=== PATIENT | female | born 1990 | race Caucasian/White ===

== ENCOUNTER 2016-08-23 09:37 | Emergency (ER) | payer OTHER ==
[2016-08-23] MEDS ORDERED: NORMAL SALINE 1000 ML 1,000 ML IV ONE (09:54)
[2016-08-23] MEDS ORDERED: METOCLOPRAMIDE HCL INJ/PF 10 MG/2 ML SDV IV ONE (09:55)
--- NOTE | 2016-08-23 09:57 | ER Document Report ---
ED Medical Screen (RME) - General Chief Complaint: Vomiting Stated Complaint: NAUSEA Time Seen by Provider: 08/23/16 09:54 Notes: Patient says she is experiencing morning sickness and been nauseated and vomiting for the past 6 days. She is approximately 7 weeks in her second . She started last Saturday with vomiting and after couple of days it eased off, but now it is coming back. She basically has had little oral intake during the 6 days. Also had some diarrhea. No fevers. No UTI symptoms. PMH: Appendectomy. TRAVEL OUTSIDE OF THE [place] IN LAST 30 DAYS: No - Related Data Allergies/Adverse Reactions: lamotrigine [From Lamictal] Allergy (Verified 08/23/16 09:39) Past Medical History Renal/ Medical History: Denies: Hx Peritoneal Dialysis Physical Exam - Vital signs Vitals: Temp Pulse Resp BP Pulse Ox 98.0 F 91 16 124/75 100 08/23/16 09:39 08/23/16 09:39 08/23/16 09:39 08/23/16 09:39 08/23/16 09:39 Course - Vital Signs Vital signs: Temp Pulse Resp BP Pulse Ox 98.0 F 91 16 124/75 100 08/23/16 09:39 08/23/16 09:39 08/23/16 09:39 08/23/16 09:39 08/23/16 09:39
[2016-08-23] MEDS ORDERED: DEXTROSE 5%-NORMAL SALINE 1,000 ML IV ONE (10:22)
[2016-08-23] MEDS ORDERED: DEXTROSE 5%-1/2 NORMAL SALINE 500 ML IV ONE (10:22)
--- NOTE | 2016-08-23 10:26 | ER Document Report ---
ED General - General Chief Complaint: Vomiting Stated Complaint: NAUSEA Time Seen by Provider: 08/23/16 09:54 Mode of Arrival: Ambulatory Information source: Patient Notes: This is a 26-year-old female 2 para 1, last normal menstrual period on July 03, reports being 7 weeks , presents to the emergency room with nausea, vomiting, diarrhea and inability to drink fluids or eat because of the nausea. Patient denies any abdominal pain. Patient denies any vaginal bleeding. Past medical history: Depression Symptoms: None Allergies: Lamictal Past surgical history: Appendectomy, LEEP TRAVEL OUTSIDE OF THE [place] IN LAST 30 DAYS: No - HPI Onset: Last week Onset/Duration: Gradual Quality of pain: No pain Severity: None Pain Level: Denies Associated symptoms: Diarrhea, Nausea, Vomiting. denies: Chest pain, Fever, Shortness of breath Exacerbated by: Denies Relieved by: Denies Similar symptoms previously: No Recently seen / treated by doctor: No - Related Data Allergies/Adverse Reactions: lamotrigine [From Lamictal] Allergy (Verified 08/23/16 09:39) Past Medical History - General Information source: Patient - Social History Smoking Status: Never Smoker Cigarette use (# per day): No Chew tobacco use (# tins/day): No Frequency of alcohol use: None Drug Abuse: None Lives with: Family Family History: Reviewed & Not Pertinent Patient has suicidal ideation: No Patient has homicidal ideation: No - Medical History Medical History: Negative Renal/ Medical History: Denies: Hx Peritoneal Dialysis Psychiatric Medical History: Reports: Hx Depression Past Surgical History: Reports: Hx Appendectomy, Hx Gynecologic Surgery Review of Systems - Review of Systems Constitutional: denies: Chills, Fever EENT: No symptoms reported Cardiovascular: No symptoms reported Respiratory: No symptoms reported Gastrointestinal: Diarrhea, Nausea, Vomiting, Poor appetite, Poor fluid intake. denies: Abdominal pain Genitourinary: No symptoms reported Female Genitourinary: No symptoms reported Musculoskeletal: No symptoms reported Skin: No symptoms reported Hematologic/Lymphatic: No symptoms reported Neurological/Psychological: No symptoms reported Physical Exam - Vital signs Vitals: Temp Pulse Resp BP Pulse Ox 98.0 F 91 16 124/75 100 08/23/16 09:39 08/23/16 09:39 08/23/16 09:39 08/23/16 09:39 08/23/16 09:39 Notes: Physical exam: GENERAL: Female, alert and oriented 3, no acute distress HEAD: Atraumatic, normocephalic. EYES: Pupils equal round and reactive to light, extraocular movements intact, sclera anicteric, conjunctiva are normal. ENT: TMs normal, nares patent, oropharynx clear without exudates. Moist mucous membranes. NECK: Normal range of motion, supple without lymphadenopathy or JVD. LUNGS: Breath sounds clear to auscultation bilaterally and equal. No wheezes rales or rhonchi. HEART: Regular rate and rhythm without murmurs, rubs or gallops. ABDOMEN: Soft, normoactive bowel sounds. No tenderness to palpation. No guarding, no rebound. No masses appreciated. EXTREMITIES: Normal range of motion, no pitting or edema. No clubbing or cyanosis. NEUROLOGICAL: Cranial nerves II through XII grossly intact. Normal speech, normal gait. PSYCH: Normal mood, normal affect. SKIN: Warm, Dry, normal turgor, no rashes or lesions noted. Course - Vital Signs Vital signs: Temp Pulse Resp BP Pulse Ox 98.9 F 88 16 107/59 L 99 08/23/16 14:13 08/23/16 14:13 08/23/16 09:40 08/23/16 14:13 08/23/16 14:13 - Laboratory Result Diagrams: 08/23/16 10:28 08/23/16 10:28 Laboratory results interpreted by me: 08/23/16 08/23/16 10:28 10:28 Calcium 10.5 H Total Protein 9.3 H Albumin 5.2 H Beta HCG, Quant 59299.00 H Urine Protein 30 H Urine Ketones 80 H Urine Ascorbic Acid 40 H - Diagnostic Test Radiology reviewed: Image reviewed, Reports reviewed - Ultrasound reveals a intrauterine gestational sac with a heartbeat of 122 Discharge - Discharge Clinical Impression: Hyperemesis gravidarum Condition: Stable Disposition: HOME, SELF-CARE Instructions: Intravenous (IV) Fluids ([facility]), Reglan ([facility]) Additional Instructions: Recommendations for nausea in : Drink plenty of fluids. Advance diet slowly. Eat small, frequent meals. The following have been found helpful for nausea in : Vitamin B 6 Unisom (sold [id number]): The active ingredient is Doxylamine. Peppermint and kathya products. Sea bands. Return to the ER for worsening vomiting, not able to tolerate liquids or concerns are getting worse. Prescriptions: Metoclopramide HCl [Reglan 10 mg Tablet] 1 - 2 tab PO ASDIR PRN #25 tablet PRN Reason:
[2016-08-23 10:50] LABS: ABSOLUTE MONOCYTES (AUTO) 0.8 10^3/uL (0.1-1.4); ABSOLUTE NEUT (AUTO) 7.3 10^3/uL (1.7-8.2); BASOPHILS % (AUTO) 0.3 % (0-2); EOSINOPHILS % (AUTO) 0.4 % (0-6); HEMATOCRIT 42.6 % (36.0-47.0); HEMOGLOBIN 14.4 g/dL (12.0-15.5); HGB HCT DIFFERENCE 0.6; LYMPHOCYTES % (AUTO) 19.9 % (13-45); MEAN CORPUSCULAR HEMOGLOBIN 30.3 pg (27.0-33.4); MEAN CORPUSCULAR HGB CONC 33.9 g/dL (32.0-36.0); MEAN CORPUSCULAR VOLUME 89 fl (80-97); MONOCYTES % (AUTO) 7.6 % (3-13); RED BLOOD COUNT 4.76 10^6/uL (3.72-5.28); SEGMENTED NEUTROPHILS % (AUTO) 71.8 % (42-78); WHITE BLOOD COUNT 10.2 10^3/uL (4.0-10.5)
[2016-08-23 11:15] LABS: ALANINE AMINOTRANSFERASE 29 U/L (9-52); ALBUMIN 5.2 g/dL (3.5-5.0); ALKALINE PHOSPHATASE 55 U/L (38-126); ANION GAP 15 (5-19); ASPARTATE AMINO TRANSFERASE 29 U/L (14-36); BILIRUBIN,DIRECT 0.2 mg/dL (0.0-0.4); BLOOD UREA NITROGEN 8 mg/dL (7-20); CALCIUM 10.5 mg/dL (8.4-10.2); CARBON DIOXIDE 22 mmol/L (22-30); CHLORIDE 103 mmol/L (98-107); CREATININE RESULT 0.67 mg/dL (0.52-1.25); GLUCOSE 78 mg/dL (75-110); LIPASE 189.9 U/L (23-300); POTASSIUM 4.1 mmol/L (3.6-5.0); SODIUM 140.1 mmol/L (137-145); TOTAL PROTEIN 9.3 g/dL (6.3-8.2)
[2016-08-23 11:43] LABS: AMORPHOUS SEDIMENT,URINE TRACE /HPF; APPEARANCE,URINE TURBID; BILIRUBIN,URINE NEGATIVE (NEGATIVE); GLUCOSE, URINE NEGATIVE (NEGATIVE); KETONES,URINE 80 mg/dL (NEGATIVE); LEUKOCYTE ESTERASE,URINE NEGATIVE (NEGATIVE); NITRITE,URINE NEGATIVE (NEGATIVE); PROTEIN,URINE 30 mg/dL (NEGATIVE); URINE SPECIFIC GRAVITY 1.031; UROBILINOGEN,URINE NEGATIVE mg/dL (<2.0)
--- NOTE | 2016-08-23 13:50 | RADIOLOGY REPORT (SQ) ---
EXAM DESCRIPTION: U/S OB TRANSVAG W/DOPPLER COMPLETED DATE/TIME: 08/23/2016 1:38 pm REASON FOR STUDY: abd cramping, first tri COMPARISON: None. TECHNIQUE: Endovaginal static and realtime grayscale images acquired of the pelvis. Additional selec benedicto spectral and color Doppler images recorded. All images stored on PACs. bHC,400 LIMITATIONS: None. FINDINGS: FETUS: Living intrauterine . EGA: 6 weeks 5 days YUSUF: 04/13/2018 FHR: 122 beats per minute. SUBCHORIONIC BLEED: No SIZE OF BLEED: Not applicable. UTERUS: Uterus is 7 x 6.5 x 5 cm in size. No fibroids. CERVICAL LENGTH: 3 cm Closed. RIGHT ADNEXA: Normal ovary with normal vascular flow. Right ovary 2.3 x 2 x 1.4 cm in size. No adnexal free fluid. No adnexal masses. LEFT ADNEXA: Normal ovary with normal vascular flow. Left ovary 2.9 x 2 x 2 cm in size No adnexal free fluid. No adnexal masses. FREE FLUID: None. OTHER: No other significant finding. IMPRESSION: LIVING INTRAUTERINE . EGA 6 weeks 5 days Trimester of : First - 0 to 13 weeks. TECHNICAL DOCUMENTATION: JOB ID: [id number] [employer]- All Rights Reserved
[2016-08-23 14:16] VITALS: BP 107/59
== END 2016-08-23 14:15 | disposition home or self-care (01) ==
LOC: ER 09:37
DX: O21.0 Mild hyperemesis gravidarum (principal); R19.7 Diarrhea, unspecified; Z3A.01 Less than 8 weeks gestation of pregnancy
CPT/HCPCS: 99284; 96375; 96365; 96366; 36415; 84702; 83690; 85025; 80053; 81001; 76817; 93976; J2765